=== PATIENT | female | born 1995 | race Caucasian/White ===

== ENCOUNTER 2017-06-07 17:22 | Emergency (ER) | payer BC ==
[2017-06-07 17:33] VITALS: BP 112/59
--- NOTE | 2017-06-07 17:35 | EDM.PDOC ---
ED HPI GENERAL MEDICAL PROBLEM - General Chief Complaint: Headache Stated Complaint: Headache for 3 days Time Seen by Provider: 06/07/17 17:32 Source of Information: Reports: Patient, RN, RN Notes Reviewed History Limitations: Reports: No Limitations - History of Present Illness INITIAL COMMENTS - FREE TEXT/NARRATIVE: Patient presents to the ED at [facility] complaining of a headache that started last Monday. Patient states the pain started in the back of her head and progressed globally over the past couple of days. She has not tried any OTC medications. Patient denies any recent head trauma or injury. Patient states she feels very nauseated. She has vomited twice today. No URI. No previous head surgeries. She states she usually does not get a headache much. She has had headaches in the past but they have been infrequent. No visual field disturbances. No dizziness. Patient states the pain is throbbing and pounding. She states this is the worse headache she's had. Onset: Gradual Onset Date: 06/02/17 Duration: Waxing/Waning Location: Reports: Head Quality: Reports: Pressure, Throbbing Severity: Severe Improves with: Reports: None Worsens with: Reports: Movement Context: Denies: Activity, Sick Contact, Trauma Associated Symptoms: Reports: Nausea/Vomiting Treatments PHOTOGRAPHER SCIENTIFIC: Reports: Other (see below) (none) Headache Pain Score (Numeric/FACES): 10 - Related Data Allergies Allergy/AdvReac Type Severity Reaction Status Date / Time No Known Allergies Allergy Verified 06/07/17 17:35 Home Meds: Home Meds . [No Known Home Meds] 06/28/15 [History] Past Medical History Genitourinary History: Reports: Renal Calculus BLUEBERRY GROWER History: Reports: , Other (See Below) Other OB/BYN History: Ovarian cysts. Neurological History: Reports: Headaches, Chronic - Past Surgical History Female Surgical History: Reports: Section Social & Family History - Tobacco Use Smoking Status *Q: Former Smoker ED ROS GENERAL - Review of Systems Review Of Systems: See Below Constitutional: Denies: Fever, Chills, Weakness HEENT: Denies: Vision Change Respiratory: Denies: Shortness of Breath, Cough Cardiovascular: Denies: Chest Pain, Palpitations GI/Abdominal: Reports: Nausea, Vomiting. Denies: Abdominal Pain, Diarrhea Musculoskeletal: Denies: Neck Pain Skin: Reports: No Symptoms Neurological: Reports: Headache. Denies: Numbness, Paresthesia, Tingling - Physical Exam Exam: See Below Exam Limited By: No Limitations General Appearance: Alert, No Apparent Distress Eye Exam: Bilateral Eye: EOMI, Normal Inspection, PERRL Ears: Normal External Exam, Normal Canal, Normal TMs Head Exam: Atraumatic, Normocephalic Neck: Supple, Non-Tender Respiratory/Chest: No Respiratory Distress, Lungs Clear, Normal Breath Sounds Cardiovascular: Normal Peripheral Pulses, Regular Rate, Rhythm GI/Abdominal: Normal Bowel Sounds, Soft, Non-Tender Neuro Exam (Abbreviated): Alert, Oriented Skin Exam: Warm, Dry, Intact, Normal Color Course - Vital Signs Last Recorded V/S: Last Vital Signs Temp 35.9 C 06/07/17 17:25 Pulse 65 06/07/17 17:25 Resp 14 06/07/17 17:25 BP 112/59 L 06/07/17 17:25 Pulse Ox 98 06/07/17 17:25 - Orders/Labs/Meds Orders: Active Orders 24 hr Category Date Time Status Head wo Cont [CT] Stat Exams 06/07/17 17:54 Taken Lactated Ringers [Ringers, Lactated] 1,000 ml Med 06/07/17 17:57 Active IV ONETIME Sodium Chloride 0.9% [Saline Flush] Med 06/07/17 17:56 Active 10 ml FLUSH ASDIRECTED PRN chlorproMAZINE [Thorazine] 50 mg Med 06/07/17 17:57 Active Sodium Chloride 0.9% [Normal Saline] 50 ml IV ONETIME Peripheral IV Insertion Adult [OM.PC] Routine Oth 06/07/17 17:56 Ordered Medication Orders Lactated Ringer's (Ringers, Lactated) 1,000 mls @ 999 mls/hr IV ONETIME ONE Stop: 06/07/17 18:57 Last Admin: 06/07/17 18:24 Dose: 999 mls/hr Chlorpromazine HCl 50 mg/ (Sodium Chloride) 52 mls @ 50 mls/hr IV ONETIME ONE Stop: 06/07/17 18:59 Last Admin: 06/07/17 18:24 Dose: 50 mls/hr Sodium Chloride (Saline Flush) 10 ml FLUSH ASDIRECTED PRN PRN Reason: Keep Vein Open Labs: Laboratory Tests 06/07/17 06/07/17 06/07/17 Range/Units 18:04 18:04 18:04 WBC 6.9 (4.0-10.0) x10^3/uL RBC 4.26 (4.00-5.50) x10^6/uL Hgb 13.8 (12.0-16.0) g/dL Hct 40.0 (33.0-47.0) % MCV 93.9 H D (78.0-93.0) fL MCH 32.4 H (26.0-32.0) pg MCHC 34.5 (32.0-36.0) g/dL RDW Coeff of Jose Manuel 11.5 (10.0-15.0) % Plt Count 236 D (130-400) x10^3/uL Neut % (Auto) 80.4 H (50.0-80.0) % Lymph % (Auto) 13.2 L (25.0-50.0) % [place] % (Auto) 5.3 (2.0-11.0) % Eos % (Auto) 1.0 (0.0-4.0) % Baso % (Auto) 0.1 L (0.2-1.2) % ESR 15 (0-21) mm/hr Sodium 139 (136-145) mmol/L Potassium 4.4 (3.5-5.1) mmol/L Chloride 104 (98-107) mmol/L Carbon Dioxide 26 (21-32) mmol/L Anion Gap 13.4 (10-20) mmol/L BUN 10 (7-18) mg/dL Creatinine 0.8 (0.55-1.02) mg/dL Est Cr Clr Drug Dosing TNP Estimated GFR (MDRD) > 60 Glucose 83 (74-106) mg/dL Calcium 9.0 (8.5-10.1) mg/dL C-Reactive Protein < 0.2 (<=0.9) mg/dL Meds: Medications Generic Name Dose Route Start Last Admin Trade Name Freq PRN Reason Stop Dose Admin Lactated Ringer's 1,000 mls @ 999 mls/hr 06/07/17 17:57 06/07/17 18:24 Ringers, Lactated IV 06/07/17 18:57 999 mls/hr ONETIME ONE Administration Chlorpromazine HCl 50 mg/ 52 mls @ 50 mls/hr 06/07/17 17:57 06/07/17 18:24 Sodium Chloride IV 06/07/17 18:59 50 mls/hr ONETIME ONE Administration Sodium Chloride 10 ml 06/07/17 17:56 Saline Flush FLUSH ASDIRECTED PRN Keep Vein Open Discontinued Medications Generic Name Dose Route Start Last Admin Trade Name Willie PRN Reason Stop Dose Admin Ondansetron HCl 4 mg 06/07/17 17:57 06/07/17 18:24 Zofran IVPUSH 06/07/17 17:58 4 mg ONETIME ONE Administration - Radiology Interpretation Free Text/Narrative:: CT Head: Acute and chronic bilateral maxillary sinus disease; no acute intracranial process See scanned report in EMR CT Results Date: 06/07/17 CT Results Time: 18:31 Departure - Departure Time of Disposition: 19:00 Disposition: Home, Self-Care 01 Condition: Good Clinical Impression: Headache Qualifiers: Headache type: unspecified Headache chronicity pattern: acute headache Intractability: not intractable Qualified Code(s): R51 - Headache - Discharge Information Instructions: General Headache Without Cause Referrals: Tisha Josue NP [Primary Care Provider] - Forms: ED Department Discharge Additional Instructions: 1. Stay well hydrated and rest 2. Continue taking home medications as you need them for headache 3. No emergency found during todays visit for the cause of your headache 4. See your Primary as symptoms warrant 5. Call us with any questions/concerns - Problem List Review Problem List Initiated/Reviewed/Updated: Yes - My Orders Last 24 Hours: My Active Orders 06/07/17 17:54 Head wo Cont [CT] Stat 06/07/17 17:56 Sodium Chloride 0.9% [Saline Flush] 10 ml FLUSH ASDIRECTED PRN Peripheral IV Insertion Adult [OM.PC] Routine 06/07/17 17:57 Lactated Ringers [Ringers, Lactated] 1,000 ml IV ONETIME chlorproMAZINE [Thorazine] 50 mg Sodium Chloride 0.9% [Normal Saline] 50 ml IV ONETIME - Assessment/Plan Last 24 Hours: My Active Orders 06/07/17 17:54 Head wo Cont [CT] Stat 06/07/17 17:56 Sodium Chloride 0.9% [Saline Flush] 10 ml FLUSH ASDIRECTED PRN Peripheral IV Insertion Adult [OM.PC] Routine 06/07/17 17:57 Lactated Ringers [Ringers, Lactated] 1,000 ml IV ONETIME chlorproMAZINE [Thorazine] 50 mg Sodium Chloride 0.9% [Normal Saline] 50 ml IV ONETIME Assessment:: Headache Plan: Labs and CT reviewed with patient. No emergency etiology found for her headache. Patient feeling better after medications and fluids. Will discharge home. Recommend f/u with PCP as symptoms warrant.
[2017-06-07] MEDS ORDERED: Sodium Chloride 0.9% 10 ML Syringe FLUSH PRN (17:56)
[2017-06-07] MEDS ORDERED: Lactated Ringers 1,000 ML IV ONE (17:57)
[2017-06-07] MEDS ORDERED: Ondansetron 4 MG/2 ML SDV IVPUSH ONE (17:57)
[2017-06-07 18:24] LABS: CHLORIDE,CL 104 mmol/L (98-107); SODIUM,NA 139 mmol/L (136-145)
== END 2017-06-07 19:23 | disposition home or self-care (01) ==
LOC: VM.ED 17:22
DX: R51 Headache (principal); Z87.891 Personal history of nicotine dependence
CPT/HCPCS: 36415; 70450; 80048; 85025; 85652; 86140; 96365; 96375; 99284; J2405; J3230; J7050; J7120